=== PATIENT | male | born 1960 | race Caucasian/White ===

== ENCOUNTER 2018-04-02 21:00 | Emergency (ER) | payer BC ==
[~2018-04-02] VITALS: Ht 180.3 cm; Wt 90.7 kg
[~2018-04-02 21:00] MED LIST: CYCLOBENZAPRINE5 MG PO; FLEXERIL PO; IBUPROFEN 800800 MG PO; LIPITOR 20 MG T20 M1 PO; NAPROSYN500 MG PO; NORCO 5-325 TA1 EACH PO; OMEPRAZOLE20 M1 PO; PERCOCET 5-3251 EACH PO
[2018-04-02 21:33] VITALS: BP 125/74
[2018-04-02] MEDS ORDERED: NORCO 5-325 TA1 EACH PO (22:07)
== END 2018-04-02 22:25 | disposition home or self-care (01) ==
LOC: ER 21:00
DX: M70.61 Trochanteric bursitis, right hip (principal); F17.210 Nicotine dependence, cigarettes, uncomplicated; K21.9 Gastro-esophageal reflux disease without esophagitis; E78.5 Hyperlipidemia, unspecified; Y93.89 Activity, other specified